=== PATIENT | female | born 1945 | race Caucasian/White ===

== ENCOUNTER 2019-08-27 15:37 | Emergency (ER) | payer OTHER, SELFPAY ==
[2019-08-27 15:56] VITALS: BP 164/109; PULSE 75; RESP 18; TEMP 37.3; O2SAT 99
--- NOTE | 2019-08-27 16:07 | ED.GENADULT ---
HPI - General Adult General Chief complaint: Skin/Abscess/Foreign Body Stated complaint: rash on chest and back Time Seen by Provider: 08/27/19 16:07 Source: patient and RN notes reviewed Mode of arrival: ambulatory Limitations: no limitations History of Present Illness HPI narrative: This is a 74 years old female presented office for evaluation of itchy lesions on her chest and back for the last 2-week. She called her doctor who told her to take Benadryl which she had been taking 50 mg at nighttime with no relief. She also tried calamine lotion which make it worse, she said it burned her skin. Denies sick contact. Denies recent stay at the motel. Denies working out in the yard or excessive sweating. Denies swimming/hot-tub, she said she would sunk if she swim. Related Data Home Medications Medication Instructions Recorded Confirmed levothyroxine 100 mcg PO DAILY 08/27/19 08/27/19 lisinopril 40 mg PO DAILY 08/27/19 08/27/19 topiramate 100 mg PO DAILY 08/27/19 08/27/19 Allergies Allergy/AdvReac Type Severity Reaction Status Date / Time morphine AdvReac Hallucinati Verified 08/27/19 16:08 ng Review of Systems Review of Systems: Narrative: CONSTITUTIONAL: Denies fever or feeling ill ENT: Denies sore throat CARDIOVASCULAR: Denies chest pain RESPIRATORY: Denies dyspnea, cough GASTROINTESTINAL: Denies abdominal pain, nausea, vomiting SKIN:Reports itchy rash on her chest and back MUSCULOSKELETAL: Denies joints pain NEUROLOGIC: Denies lightheaded/dizziness All other systems reviewed are negative, except as documented in HPI. [facility] Past Medical History Medical History (Updated 08/27/19 @ 16:28 by KETAN Voss) HTN (hypertension) Hypothyroid Stroke 2009 Comments At time of signature, I agree with nursing past medical, surgical, social and family history. There is no relevant family history pertinent to the presenting complaint. Exam Narrative: Exam Narrative: GENERAL: This is a well-nourished, well-developed patient, in no apparent distress. THROAT: Mucous membranes moist, posterior pharynx clear. NECK: Neck supple, non-tender without lymphadenopathy, masses or thyromegaly. CARDIOVASCULAR: Regular rate and rhythm without murmurs, gallops, or rubs. RESPIRATORY: Clear to auscultation. Breath sounds equal bilaterally. No wheezes, rales, or rhonchi. GASTROINTESTINAL: Abdomen soft, non-tender, nondistended. Bowel sounds are active. No hepato-splenomegaly, or palpable masses. No guarding. SKIN: upper chest in V zone noted excoriate, macular erythema lesions; similar lesions noted on her upper back and shoulders. No rash noted on extremities, belly region or private part. NO gonzales sign. NEURO: awake, alert, and oriented to person, place and time. There were no obvious focal neurologic abnormalities. Steady gait EXTREMITIES: Normal range of motion. No edema. Huson Coma Scale Eye Opening: Spontaneous 4 Franck Coma Scale Motor: Obeys Commands 6 Franck Coma Scale Verbal: Oriented 5 Course Vital Signs Vital signs: Vital Signs Temperature 99.1 F 08/27/19 15:56 Pulse Rate 75 08/27/19 15:56 Respiratory Rate 18 08/27/19 15:56 Blood Pressure 164/109 H 08/27/19 15:56 Pulse Oximetry 99 08/27/19 15:56 Temperature 99.1 F 08/27/19 15:56 Pulse Rate 75 08/27/19 15:56 Respiratory Rate 18 08/27/19 15:56 Blood Pressure 164/109 H 08/27/19 15:56 Pulse Oximetry 99 08/27/19 15:56 Medical Decision Making MDM Narrative Medical decision making narrative: Rash is likely due to her dry skin discussed with patient. Discharge instructions reviewed with patient, as well as provided in writing per nursing staff. The instructions also include specific and strict return/GO TO THE ER as well as f/u information. All questions have been answered, and the patient deny any further questions with discharge and discharge plan. Differential Diagnosis Differential Diagnosis: Contact/
[2019-08-27 16:20] VITALS: BP 150/90
== END 2019-08-27 16:25 | disposition home or self-care (01) ==
PROVIDERS: Emergency Provider Nurse Practitioner; PCP Family Medicine
DX: L25.9 Unspecified contact dermatitis, unspecified cause (principal); I10 Essential (primary) hypertension; Z86.73 Personal history of transient ischemic attack (TIA), and cerebral infarction without residual deficits; E03.9 Hypothyroidism, unspecified
CPT/HCPCS: 99213; G0463

== ENCOUNTER 2019-12-30 12:50 | Emergency (ER) | payer OTHER, SELFPAY ==
[2019-12-30 12:56] VITALS: BP 179/113; PULSE 81; RESP 20; TEMP 36.8; O2SAT 100
--- NOTE | 2019-12-30 13:08 | ED.GENADULT ---
HPI - General Adult General Chief complaint: Skin/Abscess/Foreign Body Stated complaint: rash all over Time Seen by Provider: 12/30/19 13:08 Source: patient and RN notes reviewed Mode of arrival: ambulatory Limitations: no limitations History of Present Illness HPI narrative: 74-year-old female presents with complaints of diffused, raised, itching, and red rash for the past 4 months. Annabelle says she has tried many things (Triamcinolone cream 0.1%, Hydrocortisone (OTC), Calamine lotion, Benadryl, Prednisone, Medrol-dose Pk, cream from auto body technician, and currently on Hydroxyzine 25mg T.I.D.) nothing has worked. Treated by auto body technician without relief. Denies new changes in personal hygiene products or laundry detergent. No new foods or medications. No swelling, burning, bleeding, or drainage. Denies fever, chills, headaches, weakness, fatigue, myalgia, facial swelling, or tongue swelling. Denies chest pain or dyspnea. Tolerating po intake well. The patient reports she have not been diagnosed with COVID-19. The patient reports she is not waiting for the results of a COVID-19 lab test. The patient reports she do not have a new or worsening cough. Denies chest pain. The patient reports she do not have any rhinorrhea, congestion, sore throat, loss of taste, nausea, vomiting, abdominal pain, and diarrhea. Denies recent traveling. Denies concerns for COVID-19 or exposures been home with limited outdoor exposure except for essential household needs and return home. At this time, patient is not suspected of having COVID-19. Some parts of this dictation were generated by voice recognition software and may contain typographical and/or grammatical inaccuracies. Related Data Home Medications Medication Instructions Recorded Confirmed lisinopril 40 mg PO DAILY 08/27/19 12/30/19 topiramate 100 mg PO DAILY 08/27/19 12/30/19 amlodipine 5 mg PO DAILY 12/30/19 12/30/19 doxazosin 4 mg PO DAILY 12/30/19 12/30/19 hydroxyzine HCl 25 mg PO DIRECTED 12/30/19 12/30/19 levothyroxine 50 mcg PO DAILY 12/30/19 12/30/19 losartan 100 mg PO DAILY 12/30/19 12/30/19 Allergies Allergy/AdvReac Type Severity Reaction Status Date / Time morphine AdvReac Hallucinati Verified 12/30/19 12:53 ng Review of Systems Review of Systems: Narrative: CONSTITUTIONAL: Denies fever, chills, sweats. EYES: Denies visual changes, redness, discharge. ENT: Denies rhinorrhea, congestion, sore throat, otalgia. CARDIOVASCULAR: Denies chest pain, palpitations, edema. RESPIRATORY: Denies dyspnea, wheezing, cough. GASTROINTESTINAL: Denies abdominal pain, nausea, vomiting, diarrhea. GENITOURINARY: Denies dysuria, hematuria, abnormal discharge SKIN: Complains of complaints of diffused, raised, itching, and red rash. Denies drainage. MUSCULOSKELETAL: Denies acute back pain, joint pain, or myalgia. NEUROLOGIC: Denies numbness or focal weakness. PSYCHIATRIC: Denies anxiety or depression. All other systems reviewed & are unremarkable except as noted in HPI and below. [facility] Past Medical History Medical History (Updated 12/31/19 @ 00:00 by [facility] Beatriz) Cataracts, bilateral Hard of hearing Wears hearing aids Hiatal hernia HTN (hypertension) Hypothyroid Stroke 2008 Surgical History Surgical History (Updated 12/31/19 @ 10:35 by KETAN Ruiz) History of cataract surgery Hx of appendectomy Family History Family History (Updated 12/30/19 @ 13:22 by KETAN Ruiz) Father Acute myocardial infarction Mother Hypertension Social History Social History (Updated 12/31/19 @ 10:36 by KETAN Ruiz) Smoking status: Never smoker Tobacco type: cigarettes Second hand tobacco smoke exposure: No Alcohol intake: never Substance use: never Living arrangements: with family Additional living arrangements comments: with her Occupation/Education: retired Gender identity (if verbalized by the pa
[2019-12-30 13:10] VITALS: BP 179/113; PULSE 81; RESP 20; TEMP 36.8; O2SAT 100
[2019-12-30 13:11] VITALS: BP 176/108
== END 2019-12-30 13:27 | disposition home or self-care (01) ==
PROVIDERS: Emergency Provider Nurse Practitioner Family
DX: L30.9 Dermatitis, unspecified (principal); I10 Essential (primary) hypertension; E03.9 Hypothyroidism, unspecified; Z86.73 Personal history of transient ischemic attack (TIA), and cerebral infarction without residual deficits
CPT/HCPCS: 99211; G0463